=== PATIENT | female | born 2005 | race African-American/Black ===

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

== ENCOUNTER 2025-01-13 02:46 | Emergency (ER) | payer OTHER, BC ==
[2025-01-13] MEDS ORDERED: Famotidine 20 MG TAB ONE (03:24)
[2025-01-13 04:01] LABS: Pregnancy Test - Urine (BHCG) Negative (Negative); Pregu Control Background? CLEAR/WHITE (CLR/WHITE); Pregu Control Bar Appear? YES (CONTROL BAR)
== END 2025-01-13 04:28 | disposition home or self-care (01) ==
LOC: CSHERS 02:46
DX: R07.89 Other chest pain (principal); K21.00 Gastro-esophageal reflux disease with esophagitis, without bleeding
CPT/HCPCS: 71045; 81025; 93005; 94760

== ENCOUNTER 2025-02-07 01:11 | Emergency (ER) | payer BC, OTHER ==
[2025-02-07] MEDS ORDERED: HYDROcodone/Acetaminophen 5/325 mg Tablet ONE (01:54)
== END 2025-02-07 02:35 | disposition home or self-care (01) ==
LOC: CSHERS 01:11
DX: T21.24XA Burn of second degree of lower back, initial encounter (principal); T21.23XA Burn of second degree of upper back, initial encounter; X12.XXXA Contact with other hot fluids, initial encounter
CPT/HCPCS: 16000; 90471; 90715

== ENCOUNTER 2025-02-11 08:03 | Outpatient (CLI) | payer BC, OTHER | END 2025-02-11 08:04 | disposition home or self-care (01) | LOC: CSHWCC 08:03 | PROVIDERS: ATTEND Nurse Practitioner Family | DX: T21.24XD Burn of second degree of lower back, subsequent encounter (principal) | CPT/HCPCS: 16020; 99213; G0463 ==

== ENCOUNTER 2025-02-17 11:23 | Outpatient (CLI) | payer BC, OTHER | END 2025-02-17 11:24 | disposition home or self-care (01) | LOC: CSHWCC 11:23 | PROVIDERS: ATTEND Nurse Practitioner Family | DX: T21.24XD Burn of second degree of lower back, subsequent encounter (principal) | CPT/HCPCS: 99212; G0463 ==